=== PATIENT | male | born 1955 | race Caucasian/White ===

== ENCOUNTER 2024-07-31 01:20 | Emergency (ER) | payer MEDICARE, BC ==
[~2024-07-31] VITALS: Ht 182.9 cm; Wt 91.2 kg
[2024-07-31] MEDS ORDERED: FENO160 (01:31)
[2024-07-31] MEDS ORDERED: CLOP75 (01:31)
[2024-07-31] MEDS ORDERED: ATOR80 (01:31)
[2024-07-31] MEDS ORDERED: FARXIGA10 MG (01:32)
[2024-07-31] MEDS ORDERED: ALLO100 (01:32)
[2024-07-31] MEDS ORDERED: LOSA50 (01:32)
[2024-07-31] MEDS ORDERED: METF500 (01:32)
[2024-07-31] MEDS ORDERED: OZEMPIC2 MG/0.75 (01:33)
[2024-07-31] MEDS ORDERED: Diphth,Pertuss(Acell),Tet Vac 0.5 ML VIAL IM ONE (01:45)
[2024-07-31] MEDS ORDERED: Tranexamic Acid 1000 MG/10 ML 10ML Vial (SDV) ONE (02:17)
[2024-07-31] MEDS ORDERED: Tranexamic Acid 1000 MG/10 ML 10ML Vial (SDV) TOP ONE (02:20)
[2024-07-31] MEDS ORDERED: Acetaminophen 500 MG Tab PO ONE (05:00)
== END 2024-07-31 05:14 | disposition home or self-care (01) ==
LOC: ER 01:20
DX: T81.31XA Disruption of external operation (surgical) wound, not elsewhere classified, initial encounter (principal); Z79.899 Other long term (current) drug therapy; Z79.84 Long term (current) use of oral hypoglycemic drugs; E11.9 Type 2 diabetes mellitus without complications
CPT/HCPCS: 12001; 90471; 90715; 99282-25; A9270